=== PATIENT | female | born 1940 | race Two or more races ===

== ENCOUNTER → 2022-04-15 | Outpatient (CLI) | payer OTHER, MEDICAID ==
[~2022-04-15] MED LIST: MIDAZOLAM HCL 5 MG/ML-1ML VIAL ONE; SODIUM CHLORIDE LOCK 10 ML ONE; diphenhdrAMINE HCL 50 MG/1 ML VL ONE; fentaNYL CITRATE 100 MCG/2 ML VL ONE
== END | disposition home or self-care (01) ==
LOC: EDSTATUS 04-14 15:45 → GI 10:28
PROVIDERS: ATTEND Internal Medicine Gastroenterology
DX: R10.13 Epigastric pain (principal); Z53.8 Procedure and treatment not carried out for other reasons; Z20.822 Contact with and (suspected) exposure to COVID-19
CPT/HCPCS: J2250

== ENCOUNTER → 2022-09-17 | Day surgery (SDC) | payer OTHER, MEDICAID ==
[2022-09-15 11:26] LABS: Basophils # (auto) 0.1 10 ^3/uL (0-0.2); Basophils % (auto) 1.4 % (0.0-2.0); Eosinophils # (auto) 0.1 10 ^3/uL (0-0.8); Hemoglobin 13.5 g/dL (12.2-16.2); Lymphocytes # (auto) 1.8 10 ^3/uL (0.4-5.4); Lymphocytes % (auto) 32.6 % (10.0-50.0); Mean Corpuscular Hemoglobin 30.8 pg (28.0-32.0); Mean Corpuscular Hgb Conc. 33.7 g/dL (32.0-36.0); Mean Corpuscular Volume 91.4 fL (80.0-100.0); Monocytes # (auto) 0.5 10 ^3/uL (0-1.3); Monocytes % (auto) 9.5 % (0.0-12.0); Neutrophils # (auto) 3.1 10 ^3/uL (1.6-8.6); Neutrophils % (auto) 55.5 % (37.0-80.0); Red Blood Cells 4.38 10^6/uL (4.0-5.20); Red Cell Distribution Width 14.1 % (11.8-14.3); White Blood Cell 5.6 10^3/uL (4.4-10.8)
[2022-09-15 11:45] LABS: INR 0.98 (0.9-1.15); Partial Thromboplastin Time 27.1 sec (24.6-33.4)
[2022-09-15 11:56] LABS: Albumin 3.7 g/dL (3.4-5.0); Calcium 8.7 mg/dL (8.5-10.1); Potassium 3.8 mmol/L (3.5-5.1)
[2022-09-15 11:59] LABS: Bilirubin, Total 0.4 mg/dL (0.2-1.0); Total Protein 7.7 g/dL (6.4-8.2)
[~2022-09-17] VITALS: Ht 157.5 cm; Wt 67.1 kg
[~2022-09-17] MED LIST changes: +LIDOCAINE VISCOUS 2% 15ML UD ONE
[2022-09-17 14:20] VITALS: BP 124/72
== END | disposition home or self-care (01) ==
LOC: GI 12:07
PROVIDERS: ATTEND Internal Medicine Gastroenterology
DX: R10.12 Left upper quadrant pain (principal); R10.13 Epigastric pain; K44.9 Diaphragmatic hernia without obstruction or gangrene; K21.00 Gastro-esophageal reflux disease with esophagitis, without bleeding; K29.90 Gastroduodenitis, unspecified, without bleeding; Z90.49 Acquired absence of other specified parts of digestive tract; Z90.710 Acquired absence of both cervix and uterus; Z20.822 Contact with and (suspected) exposure to COVID-19
CPT/HCPCS: 36415; 43239; 80053; 85025; 85610; 85730; J1200; J2250; J3010; U0003

== ENCOUNTER 2023-01-26 12:36 | Day surgery (SDC) | payer OTHER, MEDICAID ==
[2023-01-25 09:53] LABS: Basophils # (auto) 0.1 10 ^3/uL (0-0.2); Basophils % (auto) 1.8 % (0.0-2.0); Eosinophils # (auto) 0.1 10 ^3/uL (0-0.8); Eosinophils % (auto) 1.3 % (0.0-7.0); Hematocrit 39.7 % (36.0-46.0); Hemoglobin 13.4 g/dL (12.2-16.2); Lymphocytes # (auto) 1.6 10 ^3/uL (0.4-5.4); Lymphocytes % (auto) 33.3 % (10.0-50.0); Mean Corpuscular Hemoglobin 30.7 pg (28.0-32.0); Mean Corpuscular Hgb Conc. 33.7 g/dL (32.0-36.0); Mean Corpuscular Volume 91.3 fL (80.0-100.0); Monocytes # (auto) 0.4 10 ^3/uL (0-1.3); Monocytes % (auto) 9.5 % (0.0-12.0); Neutrophils # (auto) 2.5 10 ^3/uL (1.6-8.6); Neutrophils % (auto) 54.1 % (37.0-80.0); Nucleated Red Blood Cells % 0.1 %; Red Blood Cells 4.34 10^6/uL (4.0-5.20); White Blood Cell 4.7 10^3/uL (4.4-10.8)
[2023-01-25 10:06] LABS: INR 0.97 (0.9-1.15); Partial Thromboplastin Time 27.5 sec (24.6-33.4)
[2023-01-25 10:36] LABS: Potassium 3.9 mmol/L (3.5-5.1)
[2023-01-25 10:44] LABS: Albumin 3.8 g/dL (3.4-5.0); BUN/Creatinine Ratio 20.6 (10.0-20.0); Bilirubin, Total 0.4 mg/dL (0.2-1.0); Calcium 8.7 mg/dL (8.5-10.1); Total Protein 7.4 g/dL (6.4-8.2)
[~2023-01-26] VITALS: Ht 154.9 cm; Wt 65.8 kg
[~2023-01-26 12:36] MED LIST changes: +CHOL100055 PO; -LIDOCAINE VISCOUS 2% 15ML UD ONE; -MIDAZOLAM HCL 5 MG/ML-1ML VIAL ONE; -SODIUM CHLORIDE LOCK 10 ML ONE; -diphenhdrAMINE HCL 50 MG/1 ML VL ONE; -fentaNYL CITRATE 100 MCG/2 ML VL ONE
[2023-01-26] MEDS ORDERED: diphenhdrAMINE HCL 50 MG/1 ML VL ONE (13:34)
[2023-01-26] MEDS ORDERED: SODIUM CHLORIDE LOCK 0 ML ONE (13:34)
[2023-01-26] MEDS ORDERED: MIDAZOLAM HCL 5 MG/ML-1ML VIAL ONE (13:34)
[2023-01-26] MEDS ORDERED: fentaNYL CITRATE 100 MCG/2 ML VL ONE (13:34)
[2023-01-26] MEDS ORDERED: PROPOFOL 10 MG/ML 20 ML IV ONE (15:20)
[2023-01-26 16:17] VITALS: BP 140/79
== END 2023-01-26 16:29 | disposition home or self-care (01) ==
LOC: GI 12:36
PROVIDERS: ATTEND Internal Medicine Gastroenterology
DX: R10.12 Left upper quadrant pain (principal); K57.30 Diverticulosis of large intestine without perforation or abscess without bleeding; K64.8 Other hemorrhoids; Z90.49 Acquired absence of other specified parts of digestive tract; Z20.822 Contact with and (suspected) exposure to COVID-19
CPT/HCPCS: 36415; 45378; 80053; 85025; 85610; 85730; J2704; J7030; U0003; J2250